=== PATIENT | female | born 1995 ===

== ENCOUNTER 2024-07-10 09:12 | Outpatient (CLI) | payer OTHER, SELFPAY ==
--- NOTE | ~2024-07-10 | US_ITS ---
EXAMINATION: US OB /maternal detail DATE: 07/10/2024 10:19 INDICATION: anatomic survey. TECHNIQUE: Real-time ultrasound of the pelvis was performed. COMPARISON: None. FINDINGS: There is a single living fetus in breech presentation. The placenta is posterior, 7.9 cm from the ce rvix. The cervical length is 3.7 cm on transabdominal images, which is normal. heart rate is 14 3 beats per minute (bpm). The amniotic fluid volume is subjectively normal. The following biometric data were obtained: Biparietal diameter (BPD): 4.9 cm; head circumference (HC): 18.3 cm; abdominal circumference (AC): 15 .3 cm; femur length (FL): 3.4 cm. These measurements are concordant. Estimated weight is 364 g +/- 55 g, which correlates with the 46th percentile when 11/23/24 use d as estimated date of delivery. As single measurements, these parameters are each equal to the following estimated gestational ages: BPD: 20 weeks 6 days. HC: 20 weeks 5 days. AC: 20 weeks 4 days. FL: 20 weeks 4 days. estimated gestational age based solely on measurements from this exam is 20 weeks 5 days +/- 1 weeks 3 days. The cerebral ventricles, cerebellum, cisterna magna, nuchal fold, lip, and spine are normal. The hear t is normal. The diaphragm, stomach, kidneys, and bladder are normal. There are two umbilical arterie s to yield a 3-vessel cord. The cord insertion is normal. IMPRESSION: 1. Single living fetus in breech presentation. 2. Estimated weight is 364 g +/- 55 g, which correlates with the 46th percentile when 11/23/24s used as estimated date of delivery. 3. Normal anatomic survey. Reviewed, dictated and finalized at location A. IMPRESSION: 1. Single living fetus in breech presentation. 2. Estimated weight is 364 g +/- 55 g, which correlates with the 46th pe rcentile when 2/18/25s used as estimated date of delivery. 3. Normal anatomic survey.
== END 2024-07-10 09:13 | disposition home or self-care (01) ==
PROVIDERS: PCP Obstetrics & Gynecology; Visit Provider Obstetrics & Gynecology
DX: Z36.9 Encounter for antenatal screening, unspecified (principal); Z3A.00 Weeks of gestation of pregnancy not specified
CPT/HCPCS: 76805